=== PATIENT | male | born 1950 | race Caucasian/White ===

== ENCOUNTER → 2020-04-28 14:41 | Outpatient (BNVA) | payer MEDICARE, OTHER, SELFPAY | PROVIDERS: PCP Family Medicine; Referring Provider Family Medicine; Visit Provider Podiatrist Foot & Ankle Surgery | DX: M79.672 Pain in left foot (principal); M79.671 Pain in right foot; M19.072 Primary osteoarthritis, left ankle and foot; M19.071 Primary osteoarthritis, right ankle and foot | CPT/HCPCS: 73630 ==

== ENCOUNTER → 2021-09-14 07:38 | Outpatient (BNVA) | payer MEDICARE, OTHER, SELFPAY | PROVIDERS: PCP Family Medicine; Visit Provider Urology | DX: N43.40 Spermatocele of epididymis, unspecified (principal); N50.811 Right testicular pain; N50.812 Left testicular pain | CPT/HCPCS: 81003; 99203 ==

== ENCOUNTER 2022-01-21 19:27 | Emergency (ER) | payer MEDICARE, OTHER, SELFPAY ==
[2022-01-21 19:55] VITALS: BP 181/88; PULSE 67; RESP 18; TEMP 36.6; O2SAT 97; BMI 27.6
--- NOTE | 2022-01-21 20:04 | XRR_ITS ---
PROCEDURE INFORMATION: Exam: XR Chest Exam date and time: 01/21/2022 8:10 PM Age: 71 years old Clinical indication: Pain; Other: Trauma; Prior surgery; Surgery date: 6+ months; Additional info: Injury TECHNIQUE: Imaging protocol: Radiologic exam of the chest. Views: 1 view. COMPARISON: No relevant prior studies available. FINDINGS: Lungs: Unremarkable. No consolidation. Pleural spaces: Unremarkable. No pleural effusion. No pneumothorax. Heart/Mediastinum: Unremarkable. No cardiomegaly. Bones/joints: Unremarkable. XR/XR chest 1V portable [id number] IMPRESSION: Unremarkable
--- NOTE | 2022-01-21 20:04 | CTR_ITS ---
PROCEDURE INFORMATION: Exam: CT Chest Without Contrast; Diagnostic Exam date and time: 01/21/2022 9:07 PM Age: 71 years old Clinical indication: Injury or trauma; Other: Impingement; Patient HX: Patient was accidentally impinged between a dump truck and grain combine for approximately several minutes. C/O RT chest and abd wall pain with back pain. Circular abrasion across mid back. TECHNIQUE: Imaging protocol: Diagnostic computed tomography of the chest without contrast. Radiation optimization: All CT scans at this facility use at least one of these dose optimization techniques: automated exposure control; mA and/or kV adjustment per patient size (includes targeted exams where dose is matched to clinical indication); or iterative reconstruction. COMPARISON: (CHEST, ) 01/21/2022 8:10 PM RADIATION DOSE METRICS: Total DLP (mGy-cm): 1221.89 FINDINGS: Lungs: There is no pneumonia mass or pleural effusion. Pleural spaces: See Lungs finding. Heart: No visible calcified plaque in the coronary arteries. Lymph nodes: Unremarkable. No enlarged lymph nodes. Vasculature: Unremarkable. No aortic aneurysm. Bones/joints: Unremarkable. No acute fracture. Soft tissues: Unremarkable. PROCEDURE INFORMATION: Exam: CT Abdomen And Pelvis Without Contrast Exam date and time: 01/21/2022 9:07 PM Age: 71 years old Clinical indication: Injury or trauma; Other: Impingement; Patient HX: Patient was accidentally impinged between a dump truck and grain combine for approximately several minutes. C/O RT chest and abd wall pain with back pain. Circular abrasion across mid back. TECHNIQUE: Imaging protocol: Computed tomography of the abdomen and pelvis without contrast. Radiation optimization: All CT scans at this facility use at least one of these dose optimization techniques: automated exposure control; mA and/or kV adjustment per patient size (includes targeted exams where dose is matched to clinical indication); or iterative reconstruction. COMPARISON: abdomen limited [id number] 02/10/2020 12:12 PM RADIATION DOSE METRICS: Total DLP (mGy-cm): 1221.89 FINDINGS: Lungs: There is a 1 cm partially rim calcified aneurysm in the left perihilar renal vessels. Liver: Normal. No mass. Gallbladder and bile ducts: Normal. No calcified stones. No ductal dilation. Pancreas: Normal. No ductal dilation. Spleen: Normal. No splenomegaly. Adrenal glands: Normal. No mass. Kidneys and ureters: Normal. No hydronephrosis. Stomach and bowel: Unremarkable. No obstruction. No mucosal thickening. Appendix: No evidence of appendicitis. Intraperitoneal space: Unremarkable. No free air. No significant fluid collection. Vasculature: The abdominal aorta and iliac arteries are minimally atherosclerotic. Next the prostate is moderately enlarged. Lymph nodes: Unremarkable. No enlarged lymph nodes. Urinary bladder: Unremarkable as visualized. Reproductive: See Vasculature finding. Bones/joints: Unremarkable. No acute fracture. Soft tissues: Unremarkable. CT/[place] [id number] IMPRESSION: No acute findings. IMPRESSION: 1. Minimal calcified plaque in the coronary arteries. 2. 4 cm simple cyst in the right kidney. 3. No acute abdominal or pelvic findings. 4. Enlarged prostate. 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 6. Other chronic and incidental findings as described.
[2022-01-21 20:05] VITALS: BP 181/98; PULSE 66; RESP 17; O2SAT 95
--- NOTE | 2022-01-21 20:09 | W.ED.TRAUMA ---
HPI - Trauma General: Chief Complaint: Trauma Stated Complaint: Injury Ribs and Back Pain Time Seen by Provider: 01/21/22 20:01 Source: patient Mode of arrival: ambulatory Limitations: no limitations History of Present Illness: 71-year-old male who states that he was helping someone back a combine he was directed to him he states that they backed into him and pinned him between the combine and they dump truck. He states he is tender there for 1 to 2 minutes. He states he has pain across his abdomen and to his upper and lower back he does have abrasions to his back. Rates his pain a 6 out of 10 currently denies any other injuries denies any vomiting. Associated symptoms: Reports abdominal pain and back pain; Denies chest pain, chills, dental pain, fever(s) or headache(s) Review of Systems Const: Denies: fever(s), chills, body aches or change in appetite Eyes: Denies: blurry vision or eye discomfort ENMT: Denies: throat pain or dental pain Card: Denies: chest pain Resp: Denies: dyspnea GI: Reports: abdominal pain : Denies: dysuria Musc: Reports: back pain Skin/Breast: Denies: rash Neuro: Denies: headache(s) Psych: Denies: depression Colby/Lymph: Denies: easy bruising All/Imm: Denies: urticaria PFSH ED PFSH: Medical History Spermatocele 3 cm right superiorly located spermatocele with mild tenderness. No other concerning findings. Reassured. He elected no treatment other than palliation. Family History Father , AT 89 Natural Mother Healthy adult Social History Smoking and tobacco status: former smoker Alcohol intake: current Alcohol intake frequency: few times a month Alcohol type: beer Marital status: Number of children: 7 Number of grandchildren: 15 service: Yes Current occupational status: employed Current occupation: [employer] History of recent travel: No Physical Exam Const: COMMON NORMALS: no acute distress, patient oriented x3 and healthy appearing HENMT: COMMON NORMALS: normocephalic and atraumatic HEAD & SCALP: normocephalic and atraumatic Eye: COMMON NORMALS: Equal, round and reactive pupils present and EOMs intact bilaterally PUPIL: Yes Equal, round and reactive pupils present Neck/C-Spine: COMMON NORMALS: full ROM and supple Chest: COMMONS NORMALS: normal inspection of the chest and normal palpation of entire chest wall Resp: COMMON NORMALS: normal respiratory effort, No retractions, No use of accessory muscles and clear to auscultation bilaterally AUSCULTATION: clear to auscultation bilaterally Cardio: COMMON NORMALS: regular rate, regular rhythm and No murmurs present (Cardio) RATE: regular rate RHYTHM: regular rhythm GI: COMMON NORMALS: Normal to inspection, nondistended, normoactive bowel sounds present, Soft to palpation and no masses PALPATION: Yes Soft to palpation OTHER: Slight abdominal tenderness small abrasion to upper abdomen Back/Pelvis: OTHER: Abrasion noted to mid back with some flank pain bilaterally no midline spine tenderness Extremity: COMMON NORMALS: normal to inspection and full ROM Neuro: COMMON NORMALS: patient oriented x3, moves all extremities and no focal motor deficits Psych: COMMON NORMALS: mental status grossly normal, Normal thought process present and cooperative THOUGHT PROCESS: Normal thought process present Skin: COMMON NORMALS: no rashes or lesions noted and no wounds GENERAL SKIN EXAM: no rashes or lesions noted Course Vital Signs: Vital signs: Vital Signs Temperature 97.8 F 01/21/22 19:55 Pulse Rate 66 01/21/22 20:05 Respiratory Rate 16 01/21/22 20:16 Blood Pressure 181/98 01/21/22 20:05 Pulse Oximetry 95 01/21/22 20:16 Oxygen Delivery Me thod 01/21/22 20:05 MDM - Trauma Medical Decision Making Patient presents here with a contusion from a crush injury CT showed no fractures or acute injuries he is well-appearing here he stable for discharge he is to follow-up with PCP and return if worsening. Lab Data : 01/21/22 20:18 01/21/22 20:18 Radiology Impressions Chest X-Ray 01/21/22 20:04 IMPRESSION: Unremarkable Chest/Abdomen/Pelvis CT 01/21/22 20:04 IMPRESSION: No acute findings. IMPRESSION: 1. Minimal calcified plaque in the coronary arteries. 2. 4 cm simple cyst in the right kidney. 3. No acute abdominal or pelvic findings. 4. Enlarged prostate. 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 6. Other chronic and incidental findings as described. Laboratory Results WBC 8.8 10^3/uL (4.0-10.0) 01/21/22 20:18 RBC 4.48 10^6/uL (4.1-5.3) 01/21/22 20:18 Hgb 14.1 g/dL (11.7-16.6) 01/21/22 20:18 Hct 40.7 % (42.0-52.0) L 01/21/22 20:18 MCV 90.8 fl (80-94) 01/21/22 20:18 MCH 31.5 pg (28.0-34.0) 01/21/22 20:18 MCHC 34.6 g/dL (30.0-36.0) 01/21/22 20:18 RDW 12.3 % (12.1-15.1) 01/21/22 20:18 Plt Count 196 10^3/cmm (130-400) 01/21/22 20:18 MPV 9.5 fL (7.4-10.4) 01/21/22 20:18 Neut % (Auto) 68.1 % 01/21/22 20:18 Lymph % (Auto) 23.9 % 01/21/22 20:18 [place] % (Auto) 5.7 % 01/21/22 20:18 Eos % (Auto) 1.4 % 01/21/22 20:18 Baso % (Auto) 0.6 % 01/21/22 20:18 Neut # (Auto) 6.03 10^3/uL (1.8-7.7) 01/21/22 20:18 Lymph # (Auto) 2.1 10^3/uL (0.8-4.8) 01/21/22 20:18 [place] # (Auto) 0.5 10^3/uL (0.2-0.9) 01/21/22 20:18 Eos # (Auto) 0.1 10^3/uL (0.0-0.8) 01/21/22:18 Baso # (Auto) 0.1 10^3/uL (0.0-0.1) 01/21/22 20:18 Nucleated RBC % (auto) 0 % 01/21/22 20:18 Nucleated RBCs # 0.0 /100WBC 01/21/22 20:18 Sodium 135 mmol/L (136-145) L 01/21/22 20:18 Potassium 4.1 mmol/L (3.5-5.1) 01/21/22 20:18 Chloride 99 mmol/L (98-107) 01/21/22 20:18 Carbon Dioxide 24 mmol/L (22-29) 01/21/22 20:18 Anion Gap 16.1 (5-19) 01/21/22 20:18 BUN 21 mg/dL (8-23) 01/21/22 20:18 Creatinine 1.0 mg/dL (0.7-1.2) 01/21/22 20:18 GFR Calculation 73.9 mL/min (90-130) L 01/21/22 20:18 Glucose 98 mg/dL (65-115) 01/21/22 20:18 Calculated Osmolality 283 mOsm/kg (285-295) L 01/21/22 20:18 Calcium 9.8 mg/dL (8.5-10.5) 01/21/22 20:18 Creatine Kinase 284 U/L (39-308) 01/21/22 20:18 Discharge Plan Discharge Patient Disposition: Home Clinical Impression: Contusion Condition: Stable Prescriptions: New Naprosyn 500 mg tablet 500 mg PO BID PRN (Reason: pain) Qty: 20 0RF No Action tamsulosin 0.4 mg capsule 0.4 mg PO BID aspirin 81 mg tablet,delayed release (DR/EC) 81 mg PO DAILY acyclovir 200 mg capsule 200 mg PO BID finasteride 5 mg tablet 5 mg PO DAILY simvastatin 20 mg tablet 20 mg PO DAILY Ventolin HFA 90 mcg/actuation HFA aerosol inhaler 2 puff INHALATION Q6H PRN (Reason: Shortness Of Breath) tadalafil 5 mg Tablet 5 mg PO BEDTIME Discharge Orders: Discharge ED (Routine); Ordered 01/21/22 Ordered By: Chato Arana Referrals: Cj Barajas MD [Primary Care Provider] - 1-3 days Discharge Diet: Advance as tolerated Discharge Activity: Resume usual activity Patient Instructions: Contusion in Adults (ED) Coding Level of Care Code ED Gerontological Nurse Practitioner for Kisha Fwservando Exam Comprehensive
[2022-01-21 20:16] VITALS: RESP 16; O2SAT 95
[2022-01-21] MEDS: ondansetron 2 mg/ML SDV 2 mL 4 MG IVP (20:16)
[2022-01-21] MEDS: morphine 4 mg/mL SDV 1 mL IVP (20:16)
[2022-01-21 20:24] LABS: Basophils # 0.1 10^3/uL (0.0-0.1); Basophils % 0.6 %; Eosinophils # 0.1 10^3/uL (0.0-0.8); Eosinophils % 1.4 %; Hematocrit 40.7 % (42.0-52.0); Hemoglobin 14.1 g/dL (11.7-16.6); Lymphocytes # 2.1 10^3/uL (0.8-4.8); Lymphocytes % 23.9 %; Mean Corpuscular HGB Conc 34.6 g/dL (30.0-36.0); Mean Corpuscular Hemoglobin 31.5 pg (28.0-34.0); Mean Corpuscular Volume 90.8 fl (80-94); Mean Platelet Volume 9.5 fL (7.4-10.4); Monocytes # 0.5 10^3/uL (0.2-0.9); Monocytes % 5.7 %; Neutrophils # 6.03 10^3/uL (1.8-7.7); Neutrophils % 68.1 %; Nucleated Red Blood Cells % 0 %; Platelet Count 196 10^3/cmm (130-400); Red Blood Count 4.48 10^6/uL (4.1-5.3); Red Cell Distribution Width 12.3 % (12.1-15.1); White Blood Count 8.8 10^3/uL (4.0-10.0)
[2022-01-21 20:49] LABS: Anion Gap 16.1 (5-19); Blood Urea Nitrogen 21 mg/dL (8-23); Calcium 9.8 mg/dL (8.5-10.5); Carbon Dioxide 24 mmol/L (22-29); Chloride 99 mmol/L (98-107); Creatine Phosphokinase 284 U/L (39-308); Glomerular Filtration Rate 73.9 mL/min (90-130); Glucose 98 mg/dL (65-115); Osmolality Calculated 283 mOsm/kg (285-295); Potassium 4.1 mmol/L (3.5-5.1); Sodium 135 mmol/L (136-145)
[2022-01-21 21:44] VITALS: BP 162/85; PULSE 58; RESP 18; O2SAT 94
== END 2022-01-21 21:45 | disposition home or self-care (01) ==
PROVIDERS: Emergency Provider Emergency Medicine; PCP Family Medicine
DX: S30.1XXA Contusion of abdominal wall, initial encounter (principal); W30.0XXA Contact with combine harvester, initial encounter
CPT/HCPCS: 71045; 71250; 74176; 80048; 82550; 85025; 96374; 96375; 99285; J2270; J2405